=== PATIENT | male | born 1985 | race Caucasian/White ===

== ENCOUNTER 2018-07-28 14:48 | Observation (INO) | payer OTHER, SELFPAY ==
[2018-07-28] MEDS ORDERED: Ketorolac Tromethamine 30 MG/ML VIAL ONE ×2 (15:01→18:31)
[2018-07-28] MEDS ORDERED: Lidocaine 1% PF 5 ML VIAL ONE (15:01)
[2018-07-28] MEDS ORDERED: Glycopyrrolate 0.2 MG/ML 5 ML SYRINGE ONE (15:01)
[2018-07-28] MEDS ORDERED: Dexamethasone 20 MG/5 ML VIAL ONE (15:01)
[2018-07-28] MEDS ORDERED: Ondansetron HCl/PF 4 MG/2 ML Vial ONE (15:01)
[2018-07-28] MEDS ORDERED: Succinylcholine Chloride 20 MG/ML 10 ml SYRINGE FS ONE (15:01)
[2018-07-28] MEDS ORDERED: PROPOFOL 200 MG/20 ML VIAL ONE (15:01)
[2018-07-28 15:13] LABS: Bilirubin Negative (Negative); Blood, Urine Trace (Negative); Clarity CLEAR (Clear); Glucose, Urine (Dipstick) Negative (Negative); Leukocyte Negative (Negative); Nitrite Negative (Negative); Protein, Urine (Dipstick) Negative (Neg-Trace); Specific Gravity, Urine 1.024 (1.002-1.036); Urobilinogen 0.2 mg/dL (0.2-1.0); pH, Urine 5.5 (5.0-9.0)
[2018-07-28 15:15] LABS: Bacteria/HPF None Seen HPF (None Seen); Hyaline Casts/LPF 0-3 HYALINE CAST LPF (0-3 Hyaline); Pathc Cast-AUWi Flag 0.14 (0-2.49); Squamous Epithelial 0-3 HPF (0-3); WBC/HPF 0-3 HPF (0-3)
[2018-07-28 15:37] LABS: #Eosinphils 0.2 thou/uL (0.0-0.7); #Lymphocytes 1.3 thou/uL (1.20-3.40); #Monocytes 0.7 thou/uL (0.11-0.59); #Neutrophils 2.8 thou/uL (1.40-6.50); %Basophils 0.9 % (0.0-1.0); %Eosinophils 3.2 % (0.0-10.0); %Lymphocytes 25.7 % (21.0-51.0); %Monocytes 14.4 % (0.0-10.0); %Neutrophils 55.8 % (42.0-75.0); Mean Corpuscular Hemoglobin 31.9 pg (27.0-31.0); Mean Platelet Volume 7.7 fL (7.4-10.4); Platelet Count 179 thou/uL (130-400); RBC Distribution Width 12.5 % (11.5-14.5); Red Blood Cell (RBC) Count 4.71 mill/uL (4.70-6.10); White Blood Cell (WBC) Count 5.1 thou/uL (4.8-10.8)
[2018-07-28 16:11] LABS: ALT (SGPT) 25 U/L (8-55); AST (SGOT) 19 U/L (5-34); Albumin 3.8 g/dL (3.5-5.0); Alkaline Phosphatase 55 U/L (40-150); Anion Gap 14 mmol/L (10-20); BUN (Urea Nitrogen) 18 mg/dL (8.9-20.6); Bilirubin, Total 0.2 mg/dL (0.2-1.2); Calc. Creatinine Clearance 0 mL/min (70-130); Calcium 8.6 mg/dL (7.8-10.44); Carbon Dioxide 23 mmol/L (22-29); Chloride 104 mmol/L (98-107); Estimated GFR-MDRD Greater than 90; Globulin 2.7 g/dL (2.4-3.5); Glucose 118 mg/dL (70-105); Potassium 3.9 mmol/L (3.5-5.1); Protein, Total 6.5 g/dL (6.0-8.3); Sodium 137 mmol/L (136-145)
--- NOTE | 2018-07-28 18:02 | CT ---
NONCONTRAST CT ABDOMEN AND PELVIS 07/28/18 HISTORY: Radiating left testicular pain with pain radiating to the left flank region. COMPARISON: 04/06/10. FINDINGS: There has been interval enlargement of the right adrenal nodule when compared to prior study in 2009. The adrenal nodule on that examination measured 1.1 cm and on today's examination measures 4.1 cm. W hile portions of this adrenal lesion does demonstrate fat attenuation suggesting adrenal adenoma, the re is a eccentrically located small increased nodular area within the area of fat density measuring 1 .4 cm. Given interval enlargement and size greater than 3 cm, MRI of the abdomen is recommended for f urther evaluation. There is mild left hydronephrosis and hydroureter with an 8 mm calculus seen at the left UVJ. No right renal or ureteral calculus is visualized. The urinary bladder has a normal CT appearance. The lung bases, liver, spleen, pancreas, left adrenal gland, and right kidney demonstrate a grossly n ormal nonenhanced CT appearance. A few scattered colonic diverticula are seen with a small amount of retained fecal material seen throughout the colon. The appendix is not visualized, but no secondary signs to suggest appendicitis are noted. IMPRESSION: 1. Interval enlargement of a right adrenal nodule which is larger than expected for adrenal missy julia measuring 4.1 cm; in addition, there is also an eccentrically located focus of increased density. While areas of this lesion do demonstrate fat density suggesting an adrenal adenoma, MRI abdomen wit h and without IV contrast is recommended to further characterize this nodule. 2. Partially obstructing approximately 8 mm left UVJ calculus. 3. Colonic diverticulosis. Code T POS: [facility]
[2018-07-28] MEDS ORDERED: Acetaminophen 500 MG TAB ONE (18:31)
[2018-07-28] MEDS ORDERED: cefTRIAXone\\ROCEPHIN 2 GM VIAL ONE (18:33)
--- NOTE | 2018-07-28 18:36 | RAD ---
PORTABLE AP CHEST X-RAY: 07/28/18 HISTORY: Fever, left flank pain with pain radiating to the left groin. COMPARISON: 08/27/14. FINDINGS: Cardiac silhouette is magnified by projection. Pulmonary vasculature is within normal limits. The marsha gs remain clear. There has been no interval change from prior study. IMPRESSION: No acute intrathoracic abnormality is demonstrated. POS: [facility]
[2018-07-28] MEDS ORDERED: Morphine 4 MG/ML VIAL ONE (18:47)
[2018-07-28] MEDS ORDERED: Iothalamate Meglumine 60% 50 ML VIAL FS ONE (19:37)
[2018-07-28] MEDS ORDERED: Fentanyl 100 MCG/2 ML VIAL ONE (19:57)
[2018-07-28] MEDS ORDERED: Acetaminophen 500 MG TAB PO PRN (21:23)
[2018-07-28] MEDS ORDERED: diphenhydrAMINE 50 MG in Sodium Chloride 0.9% 50 ML IVPB PRN (21:23)
[2018-07-28] MEDS ORDERED: Ondansetron HCl/PF 4 MG/2 ML Vial IVP PRN ×2 (21:23→21:26)
[2018-07-28] MEDS ORDERED: Metoclopramide HCl 10 MG/2 ML VIAL IVP PRN (21:23)
[2018-07-28] MEDS ORDERED: Promethazine HCl 25 MG/ML VIAL IM PRN (21:26)
[2018-07-28] MEDS ORDERED: Promethazine HCl 25 MG/ML VIAL SLOW IVP PRN (21:26)
[2018-07-28] MEDS ORDERED: Meperidine HCl/PF 25 MG/ML VIAL SLOW IVP PRN (21:26)
[2018-07-28 22:10] LABS: Bilirubin Negative (Negative); Blood, Urine Large (Negative); Clarity CLEAR (Clear); Glucose, Urine (Dipstick) Negative (Negative); Leukocyte Negative (Negative); Nitrite Negative (Negative); Protein, Urine (Dipstick) Negative (Neg-Trace); Specific Gravity, Urine 1.016 (1.002-1.036); Urobilinogen 0.2 mg/dL (0.2-1.0); pH, Urine 5.5 (5.0-9.0)
[2018-07-28 22:12] LABS: Bacteria/HPF None Seen HPF (None Seen); Hyaline Casts/LPF 4-6 HYALINE CAST LPF (0-3 Hyaline); Pathc Cast-AUWi Flag 0.58 (0-2.49); RBC/HPF GREATER THAN 50-TNTC HPF (0-3); Squamous Epithelial 0-3 HPF (0-3); WBC/HPF 0-3 HPF (0-3)
[2018-07-28 22:19] LABS: Transitional Epithelial 0-3 HPF (0-3)
--- NOTE | 2018-07-28 22:28 | PDOC.FPRHP ---
- History of Present Illness Chief Complaint: Left testicular pain History of Present Illness: Mr Green is a 33yo male with pmh of HTN and TIAs who presented to the ED with left testicular pain radiating to his left flank. He endorsed subjective fevers at home and reports he hadn't being feeling well since Wednesday. Pain started suddenly overnight last night (07/27), it woke him from sleep. Endorsed decreased urine output at that time but no hematuria or dysuria. Urology placed stent in left ureter. Pain currently 0/10. Reports subrapubic discomfort, he feels he needs to void but is only able to produce a small amount of red tinged urine. Our team was notified post procedure for admission. ED Course: Ceftriaxone, Morphine 4mg, Ketorolac 30mg, acetaminophen - Allergies/Adverse Reactions Allergies Allergy/AdvReac Type Severity Reaction Status Date / Time No Known Drug Allergies Allergy Unknown Verified 07/29/18 11:34 - History PMHx: HTN, pt reported stroke with no residual deficits (right sided weakness, right sided facial droop, slurred speech- pt reports instructed to take plavix, norvasc and another medication but he does not have insurance to obtain meds) PSHx: Appendectomy FHx: Mother- of COPD Social: Smokes 1 pk/day, drinks socially, occasional marijuana - Review of Systems General: reports: fever/chills, weight/appetite/sleep changes (anorexia) Eyes: reports: other (denies blurry vision). denies: vision changes ENT: denies: nasal congestion, rhinorrhea Respiratory: denies: cough, congestion, shortness of breath Cardiovascular: denies: chest pain, edema Gastrointestinal: reports: diarrhea. denies: nausea, vomiting, constipation, abdominal pain Genitourinary: reports: other (minimal urine output, hematuria and dysuria after procedure) Skin: denies: rashes, lesions Musculoskeletal: denies: pain, swelling Neurological: denies: numbness, weakness - Vital signs BP: 138 HR: 82 RR: 77 Tmax: 20 Pox: 94% on RA Wt: 127.7kg - Physical Exam Constitutional: NAD, awake, alert and oriented, well developed HEENT: normocephalic and atraumatic, MMM, oropharynx clear Neck: supple, trachea midline Heart: RRR, no murmurs/rubs/gallops, pulses present Lungs: CTAB, no respiratory distress Abdomen: soft, bowel sounds present, other (mild suprapubic tenderness) Musculoskeletal: normal structure Skin: capillary refill <2 seconds, other (multiple tattoos, pt reports done in [place]ision mild urticaria near tape securing IV on right upper arm) Psychiatric: normal mood and affect, good judgment and insight, intact recent and remote memory FMR H&P: Results - Labs Result Diagrams: 07/29/18 04:41 07/29/18 04:41 Lab results: WBC 5.1 thou/uL (4.8-10.8) 07/28/18 15:27 Hgb 15.0 g/dL (14.0-18.0) 07/28/18 15:27 Hct 44.2 % (42.0-52.0) 07/28/18 15:27 MCV 94.0 fL (78.0-98.0) 07/28/18 15:27 Plt Count 179 thou/uL (130-400) 07/28/18 15:27 Neutrophils % 55.8 % (42.0-75.0) 07/28/18 15:27 Sodium 137 mmol/L (136-145) 07/28/18 15:27 Potassium 3.9 mmol/L (3.5-5.1) 07/28/18 15:27 Chloride 104 mmol/L (98-107) 07/28/18 15:27 Carbon Dioxide 23 mmol/L (22-29) 07/28/18 15:27 BUN 18 mg/dL (8.9-20.6) 07/28/18 15:27 Creatinine 0.92 mg/dL (0.6-1.3) 07/28/18 15:27 Glucose 118 mg/dL (70-105) H 07/28/18 15:27 Lactic Acid 1.5 mmol/L (0.5-2.2) 07/28/18 15:27 Calcium 8.6 mg/dL (7.8-10.44) 07/28/18 15:27 Total Bilirubin 0.2 mg/dL (0.2-1.2) 07/28/18 15:27 AST 19 U/L (5-34) 07/28/18 15:27 ALT 25 U/L (8-55) 07/28/18 15:27 Alkaline Phosphatase 55 U/L (40-150) 07/28/18 15:27 Serum Total Protein 6.5 g/dL (6.0-8.3) 07/28/18 15:27 Albumin 3.8 g/dL (3.5-5.0) 07/28/18 15:27 Lipase 17 U/L (8-78) 07/28/18 15:27 Urine Ketones Negative mg/dL (Negative) 07/28/18 20:58 Urine Blood Large (Negative) H 07/28/18 20:58 Urine Nitrite Negative (Negative) 07/28/18 20:58 Ur Leukocyte Esterase Negative (Negative) 07/28/18 20:58 Urine RBC GREATER THAN 50-TNTC HPF (0-3) H 07/28/18 20:58 Urine WBC 0-3 HPF (0-3) 07/28/18 20:58 Ur Squamous Epith Cells 0-3 HPF (0-3) 07/28/18 20:58 Urine Bacteria None Seen HPF (None Seen) 07/28/18 20:58 - Radiology Interpretation Chest x-ray Status: report reviewed by me Additional comment: No acute abnormality CT scan - abdomen Status: report reviewed by me Additional comment: Interval enlargement of a right adrenal nodule larger than expected for adrenal adenoma(4.1cm). Eccentrically located focus of increased density. Suggests adrenal adenoma. MRI abdomen w & wo contrast recommended. Partially obstructing 8mm left UVJ calculus. Colonic diverticulosis FMR H&P: A/P - Problem List (1) Ureterolithiasis Current Visit: Yes Status: Acute Code(s): N20.1 - CALCULUS OF URETER (2) Tobacco abuse Current Visit: Yes Status: Acute Code(s): Z72.0 - TOBACCO USE (3) HTN (hypertension) Current Visit: Yes Status: Acute Code(s): I10 - ESSENTIAL (PRIMARY) HYPERTENSION (4) Adrenal nodule Current Visit: Yes Status: Acute Code(s): E27.9 - DISORDER OF ADRENAL GLAND , UNSPECIFIED (5) CVA (cerebral vascular accident) Current Visit: Yes Status: Acute Code(s): I63.9 - CEREBRAL INFARCTION, UNSPECIFIED - Plan Mr Green is a 33yo male presenting with Ureterolithiasis s/p left ureter stent placement Ureterolithiasis s/p left ureter stent placement - Urology placed stent 05/27/18 - Pt tolerated procedure well - Continue Ceftriaxone - Continue Morphine PRN for pain control - Management per Urology HTN - Pt had not been taking meds due to inability to obtain, pt uninsured - Continue to monitor - BP currently wnl, if becomes elevated consider starting medication Hx of TIAs - No residual weakness - Start ASA and manage BP, camp head counselor on smoking cessation - Need to f/u outpt to control risk factors for stroke Tobacco Abuse - Speech And Language Assistant on cessation Adrenal nodule, 4.1cm - Suggestive of adrenal adenoma, but larger than expected and accentrically located focus of increased density - MRI abdomen w & wo contrast recommended Code status: FULL DVT ppx: Heparin FMR H&P: Upper Level - Pertinent history 33 yo M with a PMHx of HTN and reported stroke (2009) with no residual deficits who presented to ED with cc of L testicular pain that radiated to his L flank. He states that it woke him from sleep and was unbearable. He also noted decreased UOP. He had feeling somewhat fatigued since Wednesday with some fevers on and off but does not have a functional thermometer at home. He denies any other symptoms. He has never experience anything like this before. At this time , he is comfortable and reports some suprapubic tenderness to palpation but no longer having testicular or flank pain. He was admitted via ED for stent placement after which our team was notified for admission. - Pertinent findings Gen: awake, alert, oriented, diffuse tattoos HEENT: EOMI, conjunctiva non-injected, no facial droop CV: RRR, no murmurs noted RESP: CTAB Back: No CVAT : Normal appearing external genitalia Ext: no edema, pulses 2+ BL radial and dorsalis pedis Skin: Erythematous rash on RUE, does not itch CXR: neg CT A/P: Adrenal nodule, 8 mm UVJ calculus, mild hydronephrosis and hydroureter, diverticulosis - Plan Date/Time: 07/28/182224 33 yo M with PMHx presenting with symptomatic partially obstructing calculus at UVJ s/p left ureter stent placement 1. 8 mm UVJ calculus with mild L hydronephrosis and hydroureter: s/p left ureter stent placement. Dr. Vieyra notified in ED and took directly to procedure. Continue rocephin per urology and morphine for pain control. 2. HTN: Normotensive at this time. Will monitor and start medication if indicated 3. H/o Stroke: No residual deficits. Told he should be on ASA, plavix, statin and BP control in 2009 when events occurred. Lost to follow-up. Recommended f/u at [facility] or [facility]. Will give info upon discharge about [facility] care programs. 4. Tobacco abuse: Encouraged cessation 5. Adrenal nodule on CT: Interval change from 1 to 4 cm since 2009. Some characteristics that warrant MRI f/u (including > 3 mm, eccentrically located small increased nodular area within the fat density measuring 1.4 cm). Will clarify if this can be done with stent in place. 6. Colonic diverticulosis: High fiber diet 7. Tattoos: Done in long-term. Recommend Hep C, HIV, RPR screening OP. Code status: FULL DVT ppx: Heparin I, Krystal More MD, have evaluated this patient and agree with findings/plan as outlined by chemist internship resident. Pertinent changes/additions are listed here. Attending Addendum - Attending Addendum Date/Time: 07/29/18 1411 I personally evaluated the patient and discussed the management with Dr. Mcmahon. I agree with the History, Examination, Assessment and Plan documented above with any addition or exceptions noted below.
[2018-07-28] MEDS: Lactated Ringer's 1,000 ML IV SCH (23:33)
[2018-07-29 01:09] VITALS: BMI 41.3
--- NOTE | 2018-07-29 03:06 | PDOC.EVN ---
Event Note - Event Note Event Note: Date/Time: 07/29/18 0306 I personally evaluated the patient and discussed the management with Dr. Mcmahon. I agree with the History, Examination, Assessment and Plan as discussed. Written H&P pending.
[2018-07-29 05:17] LABS: #Eosinphils 0.1 thou/uL (0.0-0.7); #Lymphocytes 1.1 thou/uL (1.20-3.40); #Monocytes 0.4 thou/uL (0.11-0.59); #Neutrophils 5.5 thou/uL (1.40-6.50); %Basophils 0.4 % (0.0-1.0); %Eosinophils 0.9 % (0.0-10.0); %Lymphocytes 15.8 % (21.0-51.0); %Neutrophils 77.9 % (42.0-75.0); Hemoglobin 14.4 g/dL (14.0-18.0); Mean Corpuscular HGB CONC 33.9 g/dL (32.0-36.0); Mean Corpuscular Hemoglobin 31.6 pg (27.0-31.0); Mean Corpuscular Volume 93.3 fL (78.0-98.0); Mean Platelet Volume 7.4 fL (7.4-10.4); Platelet Count 225 thou/uL (130-400); RBC Distribution Width 12.3 % (11.5-14.5); Red Blood Cell (RBC) Count 4.56 mill/uL (4.70-6.10); White Blood Cell (WBC) Count 7.1 thou/uL (4.8-10.8)
[2018-07-29] MEDS: Lactated Ringer's 1,000 ML IV SCH ×2 (05:20→11:35)
[2018-07-29 05:25] LABS: Anion Gap 12 mmol/L (10-20); BUN (Urea Nitrogen) 13 mg/dL (8.9-20.6); Calc. Creatinine Clearance 241 mL/min (70-130); Calcium 8.2 mg/dL (7.8-10.44); Carbon Dioxide 24 mmol/L (22-29); Chloride 104 mmol/L (98-107); Estimated GFR-MDRD Greater than 90; Glucose 129 mg/dL (70-105); Potassium 4.2 mmol/L (3.5-5.1); Sodium 136 mmol/L (136-145)
[2018-07-29] MEDS ORDERED: cefTRIAXone\\ROCEPHIN 1 GM in Sodium Chloride 0.9% 100 ML IVPB SCH (09:00)
[2018-07-29] MEDS ORDERED: Tamsulosin HCl 0.4 MG CAP PO SCH (09:00)
[2018-07-29] MEDS ORDERED: Famotidine/PF 20 mg/2ml Vial SLOW IVP SCH (09:00)
[2018-07-29] MEDS ORDERED: Docusate 100 MG CAP PO SCH (09:00)
[2018-07-29] MEDS: Heparin 5,000 UNITS/ML VIAL SC SCH ×2 (09:07→14:23)
--- NOTE | 2018-07-29 09:39 | PRG ---
DATE OF SERVICE: 07/29/2018 SUBJECTIVE: The patient has done well overnight. He does have some discomfort and burning when he urinates, but overall is feeling better. He has had no further headache nor fever, he remained afebrile with a T-max of 98.6. OBJECTIVE: VITAL SIGNS: Stable, satting 100% on room air. He is not hypertensive. His CBC is fine. His chemistries are good and the urine from the OR shows no bacteria, only blood. ASSESSMENT AND PLAN: We reviewed how I do not have an explanation for his fever as there is no infection related to the stone, but he is adequately stented now. I suspect all cultures will be negative, but I went ahead and wrote him a prescription for Cipro for 7 days and told him to complete this. I am not sure there is benefit to waiting for cultures while he is in house as they are likely to be negative. So, from my standpoint, he is safe to be discharged home. He should not need narcotics at this point, but I did write him for medications to help with stent discomfort and burning. As long as there are no other concerns for an infection etiology or blood pressure concerns , then he can follow up in the office to discuss definitive stone therapy. We will call him back Wednesday or Wednesday to confirm appointment times to further set this up. He should stay off Plavix or ASA for now. RACHAEL
[2018-07-29 11:27] VITALS: TEMP 97.8
--- NOTE | 2018-07-29 13:35 | MRI ---
MRI ABDOMEN WITH AND WITHOUT CONTRAST: HISTORY: Abnormalities shown on recent CT. COMPARISON: CT prior day. FINDINGS: There is a large right adrenal adenoma. Within the medial margin of this is a well-defined T2 hyperi ntense nodule which is somewhat ovoid measuring up to 1.1 cm in size corresponding to the recent CT e xamination. This is mildly T2 hyperintense with avid enhancement. No significant hydronephrosis. The pancreas and spleen are unremarkable. No abnormal enhancing hepa tic mass. Nonenhancing small foci of the liver too small to fully characterize although statistically cysts. The spleen is unremarkable. No retroperitoneal adenopathy. IMPRESSION: Large right adrenal adenoma with an enhancing nodule on the medial margin of the adenoma. This is co ncerning for a collision tumor in a patient of this age which most likely reflects a pheochromocytoma and has imaging characteristics of pheochromocytoma. Correlation with urinalysis to evaluate for el evated metanephrines. POS: [facility]
[2018-07-29 15:37] VITALS: BP 160/96
--- NOTE | 2018-07-29 16:42 | PDOC.FM ---
- Subjective Subjective: Pt was seen and evaluated by myself at 0700 and the rest of the inpatient team at 0930. Pt feeling well this AM status post uretal stent placement without complications. Pt reports that pain is controlled. denies fevers/chills, no sob no cough no cp no palpitations - Objective MAR Reviewed: Yes Vital Signs & Weight: Vital Signs (12 hours) Temp Pulse Resp BP BP Pulse Ox 07/29/18 15:24 97.8 F 65 18 160/96 H 96 07/29/18 10:45 97.8 F 81 18 174/110 H 93 L 07/29/18 07:35 97.8 F 81 18 07/29/18 07:21 98.3 F 76 18 113/72 100 Weight Weight 127.006 kg I&O: 07/28/18 07/29/18 07/30/18 06:59 06:59 06:59 Intake Total 751 Output Total 1325 Balance -574 Result Diagrams: 07/29/18 04:41 07/29/18 04:41 <Jose Francisco Rincon - Last Filed: 07/29/18 16:43> - Objective Vital Signs & Weight: Weight Weight 127.006 kg I&O: 07/29/18 07/30/18 07/31/18 06:59 06:59 06:59 Intake Total 751 Output Total 1325 1475 Balance -574 -1475 Result Diagrams: 07/29/18 04:41 07/29/18 04:41 <Lima Lal - Last Filed: 07/30/18 16:43> Phys Exam - Physical Examination Constitutional: NAD HEENT: moist MMs, sclera anicteric Respiratory: no wheezing, no rales Cardiovascular: RRR, no significant murmur Gastrointestinal: soft, non-tender Musculoskeletal: no edema Neurological: normal sensation, moves all 4 limbs Psychiatric: normal affect Skin: no rash, normal turgor <Jose Francisco Rincon - Last Filed: 07/29/18 16:43> Dx/Plan (1) Adrenal nodule Code(s): E27.9 - DISORDER OF ADRENAL GLAND, UNSPECIFIED Status: Acute (2) HTN (hypertension) Code(s): I10 - ESSENTIAL (PRIMARY) HYPERTENSION Status: Acute (3) Ureterolithiasis Code(s): N20.1 - CALCULUS OF URETER Status: Acute - Plan Plan: 33 yo M with PMHx presenting with symptomatic partially obstructing calculus at UVJ s/p left ureter stent placement 8 mm UVJ calculus with mild L hydronephrosis and hydroureter: A- s/p left ureter stent placement. Dr. Vieyra notified in ED and took directly to procedure. P- Continue rocephin per urology and morphine for pain control today, will discharge with urology prescribed cipro HTN: A- Normotensive at this time P- Will monitor and start medication if indicated H/o Stroke A- No residual deficits. Told he should be on ASA, plavix, statin and BP control in 2009 when events occurred. Lost to follow-up. P- Recommended f/u at [facility] or [facility]. Adrenal nodule on CT A- Interval change from 1 to 4 cm since 2009. Some characteristics that warrant MRI f/u (including > 3 mm, eccentrically located small increased nodular area within the fat density measuring 1.4 cm). Will clarify if this can be done with stent in place. MRI suggestive of pheochromocytoma. Pt not symptomatic at this time. denies headache or tachycardia at present P- f/[facility] outpatient with [facility]. pt instructed to bring mri results to them. <Jose Francisco Rincon - Last Filed: 07/29/18 16:43> Attending Addendum - Attending Addendum Date/Time: 07/29/18 1642 I personally evaluated the patient and discussed the management with Dr. Rincon. I agree with the History, Examination, Assessment and Plan documented above with any addition or exceptions noted below. The patient is feeling better after stent placement. Will get MRI to further evaluate lesion on adrenal gland and likely d/c. <Lima Lal - Last Filed: 07/30/18 16:43>
--- NOTE | 2018-07-30 14:07 | PRG ---
DATE OF SERVICE: 07/29/2018 SUBJECTIVE: The patient is a 33-year-old male who presented to the ED with left testicular pain that radiated to his left flank. The patient was found to have ureterolithiasis and underwent stent plac ement yesterday. The patient is feeling much better this morning and has some occasional burning wit h urination. He has been cleared by Urology to go home with 7 days of Cipro. His cultures are negat marianne to date. An adrenal nodule was seen on his CT scan and MRI was recommended. We will proceed wit h this MRI and will likely discharge home with outpatient followup later this afternoon.
--- NOTE | 2018-07-31 17:48 | DIS-2 ---
DATE OF ADMISSION: 07/28/2018 DATE OF DISCHARGE: 07/29/2018 RESIDENT: Jose Francisco Rincon MD ADMITTING ATTENDING: Maryellen Vieyra MD DISCHARGE ATTENDING: Lima Lal MD CONSULTATION: Urology, on 07/28/2018. PROCEDURES: 1. On 07/28/2018, abdomen and pelvis CT, impression: Interval enlargement of right adrenal nodule, which is larger than expected for adrenal adenoma measuring 4.1 cm. In addition, there is also an ec centrically located focus of an increased density. All areas of this lesion do demonstrate fat densi ty suggesting an adrenal adenoma. MRI abdomen with and without IV contrast is recommended to further characterize this nodule. Partially obstructing approximately 8-mm left UVJ calculus. Colonic dive rticulosis. 2. On 07/29/2018, chest x-ray, impression: No acute intrathoracic abnormality is demonstrated. 3. On 07/29/2018, abdomen MRI, impression: Large right adrenal adenoma with an enhancing nodule on the medial margin of the adenoma. This is concerning for occlusion tumor in a patient of this age, w hich most likely reflects a pheochromocytoma and has imaging characteristics of pheochromocytoma. Co rrelation with urinalysis to evaluate for elevated metanephrines. 4. On 07/28/2018, cystoscopy/placement ureteral stent, left. PRIMARY DIAGNOSIS: Left urolithiasis with stent placement. SECONDARY DIAGNOSES: Hypertension, history of stroke. DISCHARGE MEDICATIONS: 1. Acetaminophen 1000 mg p.o. q.6. hours p.r.n. 2. Aspirin 81 mg p.o. daily. 3. Ciprofloxacin 500 mg p.o. q.12 hours for 7 days. 4. Tamsulosin 0.4 mg p.o. daily. 5. Oxybutynin 5 mg p.o. 8 hours p.r.n. DISCONTINUED MEDICATIONS: None. HISTORY OF PRESENT ILLNESS AND HOSPITAL COURSE: This is a 33-year-old male with past medical history of hypertension and a self-reported stroke in 2009, which resolved completely presenting to the ED w ith chief complaint of left testicular pain and left flank pain. The patient was found to have left urolithiasis and was admitted for stent placement and ureteroscopy, after which our team was notified of admission. The patient tolerated stent placement well and Dr. Vieyra wrote for Cipro, tamsulosin , and oxybutynin. Incidentally, a mass near the adrenal gland was found on abdominal CT concerning f or adrenal adenoma and MRI was then performed with and without contrast per Radiology's recommendatio ns. MRI showed concern for possible pheochromocytoma. On further evaluation of the patient, he admi tted to intermittent symptoms of tachycardia and sweating, though they were infrequent and beginning 1 year ago. The patient was educated about the possibility of pheochromocytoma and MRI results, and instructed to follow up outpatient with PCP regarding the finding. After the patient had tolerated t he surgery and was deemed stable for discharge, the patient was discharged home with the above instru ctions. DISPOSITION: Stable. DISCHARGE INSTRUCTIONS: 1. Location: Home. 2. Diet: Renal diet. 3. Activity: As tolerated. 4. Follow up with [facility] [address] Maryellen Vieyra in 14 days.
--- NOTE | 2018-08-01 14:19 | OP ---
DATE OF SERVICE: 07/28/2018 PREOPERATIVE DIAGNOSIS: Left ureteral stone with fever. POSTOPERATIVE DIAGNOSIS: Left ureteral stone with fever. PROCEDURE: Cystoscopy, left retrograde pyelogram, insertion of left ureteral stent 28 x 6. SURGEON: Maryellen Vieyra M.D. ANESTHESIA: General, sponge mask airway. FINDINGS: Adequate placement of a left stent beyond the obstructing left distal stone with hydronephrotic drip, but no obvious hydro on retrograde pyelogram. SPECIMENS: Urine from the left renal pelvis. COMPLICATIONS: None. BLOOD LOSS: None. INDICATIONS: The patient is a 33-year-old male who was admitted with concerns for fever of 101 and obstructing left almost 1 cm stone. He was taken for urgent stent. TECHNIQUE: The patient was brought to the room by Anesthesia, laid on the table in supine position. After receiving general anesthetic, his legs were placed in the lithotomy position and his perineum was prepped and draped in sterile fashion. The scope would not enter the meatus, so Iris sounds were used to dilate it to 26 [place] and then the scope was placed back in. The urethra was traversed and the bladder inspected and no lesions were noted. The left orifice was identified and intubated with a wire and then a Pollack catheter, which was advanced to the renal pelvis. The wire was removed of the Pollack catheter, then it had nephrotic drip until 10 mL clear urine was sent for specimen for micro and culture. The measurements were taken and a 6 x 28 double-J was placed over the wire with a good coil visualized in the renal pelvis and a good coil visualized in the bladder after repositioning it with a grasper. The scope was broken apart, bladder drained and then the scope was removed in its entirety. The patient tolerated procedure well and was then awakened and transferred to the PACU in stable condition. RACHAEL
== END 2018-07-29 17:16 | disposition home or self-care (01) ==
LOC: ERS 14:48 → SDC 19:05 → SURG A 21:46
PROVIDERS: ADMIT Urology; ATTEND Urology
PROC: 0T778DZ Dilation of Left Ureter with Intraluminal Device, Via Natural or Artificial Opening Endoscopic (ICD-10-PCS; principal; 2018-07-28)
DX: N20.1 Calculus of ureter (principal); I10 Essential (primary) hypertension; E27.9 Disorder of adrenal gland, unspecified; Z72.0 Tobacco use; Z79.899 Other long term (current) drug therapy
CPT/HCPCS: 36415; 71045; 74176; 74183; 76000; 80048; 80053; 81003; 81015; 83605; 83690; 85025; 87040; 87070; 87086; 87205; 96361; 96365; 96375; 96376; A4216; C1758; G0378; J0696; J1100; J1644; J1885; J2001; J2270; J2405; J2704; J3010; J7050; Q9961; S0028

== ENCOUNTER 2018-08-02 12:41 | Day surgery (SDC) | payer SELFPAY ==
[2018-08-01 13:41] VITALS: BMI 42.3
[2018-08-02] MEDS ORDERED: Fentanyl 100 MCG/2 ML VIAL ONE (13:17)
[2018-08-02] MEDS ORDERED: CEFAZOLIN/Water 2 GM/20 ML SYRINGE ONE (13:27)
[2018-08-02] MEDS ORDERED: Midazolam HCl 2 mg/2 ml Vial ONE (13:29)
[2018-08-02] MEDS ORDERED: Iothalamate Meglumine 60% 50 ML VIAL FS ONE (13:49)
--- NOTE | 2018-08-02 15:36 | OP ---
DATE OF PROCEDURE: 08/02/2018 PREOPERATIVE DIAGNOSIS: Left ureteral stone. POSTOPERATIVE DIAGNOSIS: Left ureteral stone. PROCEDURES PERFORMED: Cystoscopy, left ureteroscopy, left holmium laser lithotripsy, stone basketing , and stent placement with a string 6 x 28, no complications. SPECIMEN: Stone from the left ureter. DRAIN REMAINING: Was a 6 x 28 double-J with a string. ESTIMATED BLOOD LOSS: Minimal blood loss. No complications. INDICATIONS: The patient is a 33-year-old male, who was admitted acutely for fever and a stone, obst ructing the left ureter, on 07/28/2018 and had an urgent stent placed. He presents now for [facility] e stone therapy. TECHNIQUE: The patient was brought into the room by Anesthesia, laid on table in supine position. A fter receiving general anesthetic, his legs were placed in lithotomy position with the left lowered a nd the right leg elevated and then he was prepped and draped in sterile fashion. Using a 21-Yor[place] c ystoscope and 30-degree lens, the urethra was traversed and the bladder inspected. The stent was not ed to grasp and brought out through the urethral meatus and a wire was placed through this and up int o the renal pelvis confirmed by fluoroscopy, and then the old stent was removed and a rigid ureterosc ope was used to get up to the level of the stone. There was some edema of the region, but otherwise able to get up to the level of the stone without difficulty and then break it up into approximately 2 larger pieces and 2-3 smaller pieces. Once this was adequately fragmented, the fiber was removed an d a basket was used. The first stone specimen was brought out all the way through the meatus and sen t for specimen. The rest of them were dropped in the bladder and then went back up in order to get b ack into the ureter since there was some difficulty in placement. Another wire was used to help get the scope into the ureter and then I was able to use the basket itself as an extra wire in helping in to the ureter where 3 more times stone fragments were removed. A final pass of the ureter revealed n othing significant size remaining, so the ureteroscope was removed and the cystoscope put in to get t he stones out of the bladder and then the cystoscope back fed over the wire and a 6 x 28 double-J was placed with good coil visualized in the renal pelvis via fluoroscopy and a coil visualized in the bl adder via cystoscopy. Scope was broken apart, bladder drained and removed carefully in order to leav e the string intact, which was then secured to the patient's penis. The patient was then awakened an d transferred to PACU in stable condition.
== END 2018-08-02 16:10 | disposition home or self-care (01) ==
LOC: SDC 12:41
PROVIDERS: ATTEND Urology
PROC: 0TF78ZZ Fragmentation in Left Ureter, Via Natural or Artificial Opening Endoscopic (ICD-10-PCS; principal; 2018-08-02)
PROC: 0T778DZ Dilation of Left Ureter with Intraluminal Device, Via Natural or Artificial Opening Endoscopic (ICD-10-PCS; principal; 2018-08-02)
DX: N20.1 Calculus of ureter (principal)
CPT/HCPCS: 76000; 82365; 88300; C1758; C1769; J2250; J3010; Q9961

== ENCOUNTER 2023-10-12 14:44 | Outpatient (CLI) | payer BC | END 2023-10-12 14:45 | disposition home or self-care (01) | LOC: SCSRAD 14:44 | PROVIDERS: ATTEND Nurse Practitioner Family | DX: M25.562 Pain in left knee (principal) ==